=== PATIENT | female | born 1945 | race Caucasian/White ===

== ENCOUNTER 2019-11-30 12:26 | Outpatient (CLI) | payer MEDICARE, OTHER, SELFPAY ==
[2019-11-30 12:56] LABS: Basophils % 0.9 %; Eosinophils # 0.1 10^3/uL (0.0-0.8); Eosinophils % 2.4 %; Hematocrit 45.4 % (37.0-47.0); Hemoglobin 14.8 g/dL (11.5-15.3); Lymphocytes # 0.9 10^3/uL (0.8-4.8); Lymphocytes % 28.4 %; Mean Corpuscular HGB Conc 32.6 g/dL (30.0-36.0); Mean Corpuscular Hemoglobin 29.9 pg (28.0-34.0); Mean Corpuscular Volume 91.7 fL (81-99); Mean Platelet Volume 9.7 fL (7.4-10.4); Monocytes # 0.3 10^3/uL (0.2-0.9); Monocytes % 10.1 %; Neutrophils # 1.9 10^3/uL (1.8-7.7); Nucleated Red Blood Cells % 0 %; Platelet Count 288 10^3/cmm (130-400); Red Blood Count 4.95 10^6/uL (4.1-5.3); Red Cell Distribution Width 12.1 % (12.1-15.1); White Blood Count 3.3 10^3/uL (4.0-10.0)
[2019-11-30 13:23] LABS: Alanine Aminotransferase 21 U/L (0-33); Alkaline Phosphatase 58 IU/L (35-105); Anion Gap 13.7 (5-19); Aspartate Amino Transferase 22 U/L (0-32); Blood Urea Nitrogen 11 mg/dL (8-23); Calcium 9.6 mg/dL (8.5-10.5); Carbon Dioxide 25 mmol/L (22-29); Chloride 94 mmol/L (98-107); Globulin 2.2 g/dL (1.3-4.6); Glucose 125 mg/dL (65-115); Osmolality Calculated 266 mOsm/kg (285-295); Potassium 3.7 mmol/L (3.5-5.1); Sodium 129 mmol/L (136-145); Thyroid Stimulating Hormone 2.95 uIU/mL (0.27-4.20); Total Bilirubin 0.5 mg/dL (0.15-1.2); Total Protein 6.2 g/dL (6.6-8.7)
--- NOTE | 2019-11-30 14:36 | ONC FU_ITS ---
Dr. Gunderson follow up note Patient: Lucero Maier Unit #: [id number]: 1945 Dicatated By: Karl Gunderson M.D.Date of Visit:November 30, 2019 Onc Med Follow-up/Prog Note History of Present Illness: Mrs. Lucero Maier, 74-year-old female with history of newly diagnosed DCIS, as per patient during routine mammogram follow-up she was found to have 6 mm irregular nodule at 1 to 2:00 position which was confirmed with ultrasound and underwent Ultrasound-guided biopsy which confirmed DCIS, papillary and cribriform pattern with no necrosis, grade 1 ER/SD positive HER-2/lakeisha negative and on 02/27/2017 she underwent left breast lumpectomy which showed focal residual DCIS in the previous biopsy site, intermediate grade, with a clear margin but medial margin within 1 mm, associated with microcalcifications History of leukopenia, for which she underwent bone marrow evaluation about 10 years ago, as per patient no significant abnormality was seen, only observation was planned. she was referred to radiation oncology for postlumpectomy radiation which was started on 04/23/2017 and finished on 05/29/2017 Was started on Arimidex 1 mg by mouth daily for 5 years on 08/11/2017 Follow-up mammogram done on 05/26/2019 showed, BI-RADS 2, benign Came for follow-up, denies any specific complaints, no fever or chills, no nausea or vomiting, no diarrhea constipation, no new bony pains, occasionally hot flashes otherwise tolerating Arimidex well. Patient has seen in surgical clinic for follow-up and had mammogram done in May 2019 and it showed no abnormality and follow-up mammogram in a year recommended. Medications: Alive Once Daily Womens 50+ 1 Tablet Oral daily, Aspirin 1 Tablet (of 81 mg) Oral daily, [place] 1 Capsule (of 3 mg) Oral daily, [place]-Aiirzrfwe-Ppgz 2 (500-250-12.5 mg) Tablet Oral b.i.d., Cetirizine HCl 1 Tablet (of 10 mg) Capsule Oral daily, Cholecalciferol 1 Tablet (of 5000 Units) Oral daily, Ramya-C 1 Tablet Tablet, controlled release Oral daily, ICaps Plus 1 Tablet Oral daily, gustabo-x 2 Capsule daily, MegaRed [place]-3 Krill Oil 1 Capsule (of 500 mg) Oral daily, Qunol Ultra CoQ10 1 Capsule (of 100-150 mg - Units) Oral at bedtime, RaNITidine HCl 1 Tablet (of 150 mg) Oral daily PRN, Robitussin Nighttime Cough DM 2 tsp (of 12.5-30 mg/10mL) Liquid Oral at bedtime PRN, thymus plus 2 Tablet daily, Thyroid Blend SP-26 1 Tablet daily, Tylenol PM Extra Strength 1 Tablet (of 500-25 mg) Oral at bedtime PRN, Vitamin A 1 (03193 Units) Capsule Oral daily, Vitamin E 1 (400 Units) Capsule Oral daily Allergies: Barium Sulfate, Codeine Sulfate, and Penicillins. Review of Systems: Constitutional - Appetite is good and weight is stable. No fever, chills. Occasional hot flashes and night sweats. Energy level is good, ENMT - Frequent sinus congestion/drainage. No mouth sores. No sore throat or difficulty swallowing, Hematologic/Lymphatic - No abnormal bruising or bleeding, Respiratory - No shortness of breath. Nonproductive cough. No pleuritic pain or hemoptysis, Cardiovascular - No angina pain. No palpitations, Gastrointestinal - No nausea or vomiting. No heartburn or acid reflux. No diarrhea or constipation. No blood in the stool or black stools, Genitourinary (F) - No dysuria or hematuria. No urinary frequency. No urgency or incontinence, Musculoskeletal - chronic joint pain, Integumentary - edema present in bilateral lower extremities, Neurologic - No headache or dizziness. No numbness/paresthesias or other focal neurologic symptoms, Psychiatric - No anxiety or depression. No insomnia. Vital Signs: Performed on November 30, 2019 13:52 Height - 58.50 in Weight - 158.4 lbs (HIGH) BSA - 1.66 sq.m BMI - 32.54 (HIGH) Temperature - 96.9 F (LOW) Pulse - 68 /min Respiration - 18 /min BP - 196/59 mm(hg) (HIGH) O2 Sat - 95 % (LOW) Pain - 2 Performance Status: 0 - Fully active, able to carry on all predisease activities without restrictions. (ECOG) Physical Examination: Respiratory - Lungs are clear, Cardiovascular - Regular rate and rhythm of heart, Extremities - 1+ edema bilaterally. Lab/Imaging: Most recent lab results are not available for this patient. Impression: DCIS of left breast status post lumpectomy on 02/27/2017, ER/SD positive HER-2/lakeisha negative grade 1, clear surgical margins but medial margin less than 1 mm. Status post postlumpectomy radiation therapy from 04/23/2017 till 05/29/2017 Started on Arimidex 1 mg by mouth daily for 5 years on 08/11/2017 Leukopenia with questionable etiology could be underlying myelodysplasia As per patient she had bone marrow evaluation done about 10 years ago, at that time nothing obvious was noted, so observation was planned Plan: Discussed with patient regarding her labs white blood count 3.3 hemoglobin 14.8 g, hematocrit 45.4 platelets 288,000 CMP within normal limit except sodium 129 and TSH 2.95 Clinically, patient doing well with no signs symptoms suggestive of recurrence of disease, tolerating Arimidex/vitamin D/calcium well. We'll continue with same Mild leukopenia, etiology unclear could be multifactorial. Patient has been taking multiple herbs in the form of various teas since 1980s, could be due to one of those or considering her age underlying myelodysplasia cannot be ruled out but her white blood count has been stable per last over 10 years, will continue to monitor Mild Hyponatremia, probably due to excessive free water intake patient said she drinks a lot of liquids. Patient was advised to reduce free water intake and patient will follow with primary care physician for further instructions. Return to clinic in 8 months with CBC Signed By: Karl Gunderson M.D. <<Signature on File>>
== END 2019-11-30 12:27 | disposition home or self-care (01) ==
LOC: ONCMED 12:36
PROVIDERS: PCP Family Medicine; Visit Provider Internal Medicine Hematology & Oncology
DX: D05.12 Intraductal carcinoma in situ of left breast (principal); Z17.0 Estrogen receptor positive status [ER+]; D72.819 Decreased white blood cell count, unspecified; E87.1 Hypo-osmolality and hyponatremia; Z79.811 Long term (current) use of aromatase inhibitors; Z92.3 Personal history of irradiation
CPT/HCPCS: 80053; 84443; 85025; 99214

== ENCOUNTER 2020-08-01 12:31 | Outpatient (CLI) | payer MEDICARE, OTHER, SELFPAY ==
[2020-08-01 13:06] LABS: Basophils % 1.2 %; Eosinophils # 0.1 10^3/uL (0.0-0.8); Eosinophils % 2.7 %; Hematocrit 45.4 % (37.0-47.0); Hemoglobin 14.6 g/dL (11.5-15.3); Lymphocytes % 28.1 %; Mean Corpuscular HGB Conc 32.2 g/dL (30.0-36.0); Mean Corpuscular Hemoglobin 29.6 pg (28.0-34.0); Mean Corpuscular Volume 92.1 fL (81-99); Mean Platelet Volume 9.9 fL (7.4-10.4); Monocytes # 0.4 10^3/uL (0.2-0.9); Neutrophils % 53.2 %; Nucleated Red Blood Cells % 0 %; Platelet Count 327 10^3/cmm (130-400); Red Blood Count 4.93 10^6/uL (4.1-5.3); Red Cell Distribution Width 12.1 % (12.1-15.1); White Blood Count 3.4 10^3/uL (4.0-10.0)
--- NOTE | 2020-08-01 14:39 | ONC FU_ITS ---
Dr. Gunderson follow up note Patient: Lucero Maier Unit #: [id number]: 1945 Dicatated By: Karl Gunderson M.D.Date of Visit:Aug 01, 2020 Onc Med Follow-up/Prog Note History of Present Illness: Mrs. Lucero Maier, 74-year-old female with history of newly diagnosed DCIS, as per patient during routine mammogram follow-up she was found to have 6 mm irregular nodule at 1 to 2:00 position which was confirmed with ultrasound and underwent Ultrasound-guided biopsy which confirmed DCIS, papillary and cribriform pattern with no necrosis, grade 1 ER/ME positive HER-2/lakeisha negative and on 02/27/2017 she underwent left breast lumpectomy which showed focal residual DCIS in the previous biopsy site, intermediate grade, with a clear margin but medial margin within 1 mm, associated with microcalcifications History of leukopenia, for which she underwent bone marrow evaluation about 10 years ago, as per patient no significant abnormality was seen, only observation was planned. she was referred to radiation oncology for postlumpectomy radiation which was started on 04/23/2017 and finished on 05/29/2017 Was started on Arimidex 1 mg by mouth daily for 5 years on 08/11/2017 Came for follow-up, denies any specific complaints, no fever chills, no nausea or vomiting, no diarrhea constipation, no hot flashes, no bony pains. Tolerating Arimidex/vitamin D/calcium well otherwise. Patient was supposed to get mammogram prior to this visit but as per patient it was rescheduled and now she will get it done in September 2020. Medications: Alive Once Daily Womens 50+ 1 Tablet Oral daily, Aspirin 1 Tablet (of 81 mg) Oral daily, [place] 1 Capsule (of 3 mg) Oral daily, [place]-Iofptxryd-Uqyy 2 (500-250-12.5 mg) Tablet Oral b.i.d., Cetirizine HCl 1 Tablet (of 10 mg) Capsule Oral daily, Cholecalciferol 1 Tablet (of 5000 Units) Oral daily, Ramya-C 1 Tablet Tablet, controlled release Oral daily, ICaps Plus 1 Tablet Oral daily, gustabo-x 2 Capsule daily, MegaRed [place]-3 Krill Oil 1 Capsule (of 500 mg) Oral daily, Qunol Ultra CoQ10 1 Capsule (of 100-150 mg - Units) Oral at bedtime, RaNITidine HCl 1 Tablet (of 150 mg) Oral daily PRN, Robitussin Nighttime Cough DM 2 tsp (of 12.5-30 mg/10mL) Liquid Oral at bedtime PRN, thymus plus 2 Tablet daily, Thyroid Blend SP-26 1 Tablet daily, Tylenol PM Extra Strength 1 Tablet (of 500-25 mg) Oral at bedtime PRN, Vitamin A 1 (04923 Units) Capsule Oral daily, Vitamin E 1 (400 Units) Capsule Oral daily Allergies: Barium Sulfate, Codeine Sulfate, and Penicillins. Review of Systems: Review of Systems is not available for this patient. Vital Signs: Performed on Aug 01, 2020 14:12 Height - 58.50 in Weight - 160.0 lbs (HIGH) BSA - 1.67 sq.m BMI - 32.87 (HIGH) Temperature - 97.9 F (LOW) Pulse - 71 /min Respiration - 16 /min BP - 157/73 mm(hg) (HIGH) O2 Sat - 97 % Pain - 0 Performance Status: 0 - Fully active, able to carry on all predisease activities without restrictions. (ECOG) Physical Examination: Respiratory - Lungs are clear to auscultation, Cardiovascular - Regular rate and rhythm of heart, Gastrointestinal - Soft, bowel sounds present, Extremities - No visible edema or rash. Lab/Imaging: Most recent lab results are not available for this patient. Impression: DCIS of left breast status post lumpectomy on 02/27/2017, ER/ME positive HER-2/lakeisha negative grade 1, clear surgical margins but medial margin less than 1 mm. Status post postlumpectomy radiation therapy from 04/23/2017 till 05/29/2017 Started on Arimidex 1 mg by mouth daily for 5 years on 08/11/2017 Leukopenia with questionable etiology could be underlying myelodysplasia As per patient she had bone marrow evaluation done about 10 years ago, at that time nothing obvious was noted, so observation was planned Plan: Discussed with patient regarding her labs white blood count 3.4 hemoglobin 14.6 crit 44.4 platelets 327,000, with a normal differential Clinically, patient doing well with no new signs symptoms history of disease recurrence, tolerating Arimidex/vitamin D/calcium well. Mild leukopenia, stable/improving, will continue to monitor and return to clinic in 1 year with CBC And patient scheduled for Follow-up mammogram in September 2019, will follow with report Signed By: Karl Gunderson M.D. <<Signature on File>>
== END 2020-08-01 12:32 | disposition home or self-care (01) ==
LOC: ONCMED 12:34
PROVIDERS: PCP Family Medicine; Visit Provider Internal Medicine Hematology & Oncology
DX: D05.12 Intraductal carcinoma in situ of left breast (principal); Z17.0 Estrogen receptor positive status [ER+]; D72.819 Decreased white blood cell count, unspecified; Z79.811 Long term (current) use of aromatase inhibitors; Z92.3 Personal history of irradiation
CPT/HCPCS: 36415; 85025; G0463

== ENCOUNTER 2021-09-26 14:02 | Outpatient (CLI) | payer MEDICARE, OTHER, SELFPAY ==
[2021-09-26 14:44] LABS: Basophils % 0.8 %; Eosinophils # 0.1 10^3/uL (0.0-0.8); Eosinophils % 2.1 %; Hematocrit 41.9 % (37.0-47.0); Lymphocytes # 1.5 10^3/uL (0.8-4.8); Lymphocytes % 32.2 %; Mean Corpuscular HGB Conc 33.4 g/dL (30.0-36.0); Mean Corpuscular Hemoglobin 30.4 pg (28.0-34.0); Mean Corpuscular Volume 90.9 fl (81-99); Mean Platelet Volume 9.2 fL (7.4-10.4); Monocytes # 0.4 10^3/uL (0.2-0.9); Neutrophils # 2.64 10^3/uL (1.8-7.7); Neutrophils % 55.3 %; Nucleated Red Blood Cells % 0 %; Platelet Count 343 10^3/cmm (130-400); Red Blood Count 4.61 10^6/uL (4.1-5.3); Red Cell Distribution Width 12.8 % (12.1-15.1); White Blood Count 4.8 10^3/uL (4.0-10.0)
[2021-09-26 15:23] LABS: Alanine Aminotransferase 13 U/L (0-33); Albumin Level 4.1 g/dL (3.5-5.2); Alkaline Phosphatase 67 IU/L (35-105); Anion Gap 13.6 (5-19); Aspartate Amino Transferase 17 U/L (0-32); Blood Urea Nitrogen 10 mg/dL (8-23); Calcium 9.8 mg/dL (8.5-10.5); Carbon Dioxide 26 mmol/L (22-29); Chloride 103 mmol/L (98-107); Glucose 125 mg/dL (65-115); Osmolality Calculated 289 mOsm/kg (285-295); Potassium 3.6 mmol/L (3.5-5.1); Sodium 139 mmol/L (136-145); Total Bilirubin 0.8 mg/dL (0.15-1.2); Total Protein 6.1 g/dL (6.6-8.7)
--- NOTE | 2021-09-26 16:37 | ONC FU_ITS ---
Dr. Gunderson follow up note Patient: Lucero Maier Unit #: [id number]: 1945 Dicatated By: Karl Gunderson M.D.Date of Visit:Sep 26, 2021 Onc Med Follow-up/Prog Note History of Present Illness: Mrs. Lucero Maier, 76-year-old female with history of newly diagnosed DCIS, as per patient during routine mammogram follow-up she was found to have 6 mm irregular nodule at 1 to 2:00 position which was confirmed with ultrasound and underwent Ultrasound-guided biopsy which confirmed DCIS, papillary and cribriform pattern with no necrosis, grade 1 ER/NC positive HER-2/lakeisha negative and on 02/27/2017 she underwent left breast lumpectomy which showed focal residual DCIS in the previous biopsy site, intermediate grade, with a clear margin but medial margin within 1 mm, associated with microcalcifications History of leukopenia, for which she underwent bone marrow evaluation about 10 years ago, as per patient no significant abnormality was seen, only observation was planned. she was referred to radiation oncology for postlumpectomy radiation which was started on 04/23/2017 and finished on 05/29/2017 Was started on Arimidex 1 mg by mouth daily for 5 years on 08/11/2017 Came for follow-up, denies any specific complaints, except cramps in her lower extremities, as per patient she was diagnosed with Covid infection in July 2021 and was treated as inpatient for 1 week, at that time, she did not take Arimidex for almost 1 month and then restarted till about a week ago when she ran out a prescription. And now she thinks her leg cramps could be due to Arimidex. No fever chills, no nausea or vomiting, no diarrhea or constipation, no melena or hematochezia, no hemoptysis hematemesis no new bony pains Came for follow-up, denies any specific complaints, no fever chills, no nausea or vomiting, no diarrhea constipation, no hot flashes, no bony pains. Tolerating Arimidex/vitamin D/calcium well otherwise. Patient was supposed to get mammogram prior to this visit but as per patient it was rescheduled and now she will get it done in September 2020. Medications: Alive Once Daily Womens 50+ 1 Tablet Oral daily, [place] 1 Capsule (of 3 mg) Oral daily, Plfahzv-Aticmfpjg-Glon 2 (500-250-12.5 mg) Tablet Oral b.i.d., Cetirizine HCl 1 Tablet (of 10 mg) Capsule Oral daily, Cholecalciferol 1 Tablet (of 5000 Units) Oral daily, Ramya-C 1 Tablet Tablet, controlled release Oral daily, ICaps Plus 1 Tablet Oral daily, gustabo-x 2 Capsule daily, MegaRed [place]-3 Krill Oil 1 Capsule (of 500 mg) Oral daily, Qunol Ultra CoQ10 1 Capsule (of 100-150 mg - Units) Oral at bedtime, RaNITidine HCl 1 Tablet (of 150 mg) Oral daily PRN, Robitussin Nighttime Cough DM 2 tsp (of 12.5-30 mg/10mL) Liquid Oral at bedtime PRN, Thyroid Blend SP-26 1 Tablet daily, Tylenol PM Extra Strength 1 Tablet (of 500-25 mg) Oral at bedtime PRN, Vitamin E 1 (400 Units) Capsule Oral daily Allergies: Barium Sulfate, Codeine Sulfate, and Penicillins. Review of Systems: Review of Systems is not available for this patient. Vital Signs: Performed on Sep 26, 2021 15:34 Height - 58.50 in Weight - 149.6 lbs (LOW) BSA - 1.62 sq.m BMI - 30.73 (HIGH) Temperature - 97.0 F (LOW) Pulse - 70 /min Respiration - 16 /min BP - 123/69 mm(hg) O2 Sat - 95 % (LOW) Pain - 0 Fatigue - 8 Performance Status: 0 - Fully active, able to carry on all predisease activities without restrictions. (ECOG) Physical Examination: Respiratory - Lungs are clear to auscultation, Cardiovascular - Regular rate and rhythm of heart, Gastrointestinal - Soft, bowel sounds present, Extremities - No visible edema. Lab/Imaging: Most recent lab results are not available for this patient. Impression: DCIS of left breast status post lumpectomy on 02/27/2017, ER/NC positive HER-2/lakeisha negative grade 1, clear surgical margins but medial margin less than 1 mm. Status post postlumpectomy radiation therapy from 04/23/2017 till 05/29/2017 Started on Arimidex 1 mg by mouth daily for 5 years on 08/11/2017 Leukopenia with questionable etiology could be underlying myelodysplasia As per patient she had bone marrow evaluation done about 10 years ago, at that time nothing obvious was noted, so observation was planned History of Covid infection, diagnosed in July 2021 required inpatient care Plan: Discussed with patient regarding her labs white blood count 4.8 hemoglobin 14 hematocrit 41.9 platelets 343,000 CMP within normal limits Clinically, patient doing well with no new signs symptom suggestive of recurrence of disease her lab work-up is in within normal range, isolated mild leukopenia, now has resolved. As far as history of DCIS left breast is concerned, she is on Arimidex, and ran out of prescription about a week ago. Patient is concerned about lower extremity cramps as she is attributing those to Arimidex. Patient was advised to continue to hold Arimidex for another month and if her lower extremity cramps resolves then we will consider switching her to Femara for remaining adjuvant therapy on the other hand if she has a persistent leg cramps, will restart her on Arimidex and give her prescription for Arimidex. Return to clinic in 1 month Signed By: Karl Gunderson M.D. <<Signature on File>>
== END 2021-09-26 14:03 | disposition home or self-care (01) ==
PROVIDERS: PCP Family Medicine; Visit Provider Internal Medicine Hematology & Oncology
DX: D05.12 Intraductal carcinoma in situ of left breast (principal); R25.2 Cramp and spasm; D72.819 Decreased white blood cell count, unspecified; Z79.899 Other long term (current) drug therapy
CPT/HCPCS: 36415; 80053; 85025; 99214

== ENCOUNTER 2021-10-29 13:23 | Outpatient (CLI) | payer MEDICARE, OTHER, SELFPAY ==
--- NOTE | 2021-11-01 08:26 | ONC FU_ITS ---
Margarita Celeste Progress Note Patient: Lucero Maier Unit #: [id number]: 1945 Dicatated By: Margarita Celeste N.P.Date of Visit:Oct 29, 2021 Onc MED Follow-up/Prog Note Chief Complaint: Breast cancer History of Present Illness: Mrs. Lucero Maier, 76-year-old female with history of newly diagnosed DCIS, as per patient during routine mammogram follow-up she was found to have 6 mm irregular nodule at 1 to 2:00 position which was confirmed with ultrasound and underwent Ultrasound-guided biopsy which confirmed DCIS, papillary and cribriform pattern with no necrosis, grade 1 ER/MD positive HER-2/alkeisha negative and on 02/27/2017 she underwent left breast lumpectomy which showed focal residual DCIS in the previous biopsy site, intermediate grade, with a clear margin but medial margin within 1 mm, associated with microcalcifications History of leukopenia, for which she underwent bone marrow evaluation about 10 years ago, as per patient no significant abnormality was seen, only observation was planned. she was referred to radiation oncology for postlumpectomy radiation which was started on 04/23/2017 and finished on 05/29/2017 Was started on Arimidex 1 mg by mouth daily for 5 years on 08/11/2017 Patient presents today for follow-up. She denies any problems. She has mild fatigue. Her appetite is good. No fevers, chills, night sweats. No sinus drainage or sore throat. No shortness of breath, cough, chest pain. No nausea or vomiting. No urinary symptoms. No joint or bone pain. Review Of Symptoms: See above Past Medical History: Asthma Osteoarthritis Covid virus in 2021 Cancer (left breast) in 2017 Past Surgical History: Tubal ligation Covid virus in 2021 Lumpectomy in 2017 - left Breast biopsy in 2017 - left Bone marrow aspiration/biopsy in 2010 Cholecystectomy in 2002 Colonoscopy in 1994 Tonsillectomy in 1949 Allergies: Barium Sulfate, Codeine Sulfate, and Penicillins. Medications: Alive Once Daily Womens 50+ 1 Tablet Oral daily [place] 1 Capsule (of 3 mg) Oral daily Trndgqs-Cyybqtpho-Hior 2 (500-250-12.5 mg) Tablet Oral b.i.d. Cetirizine HCl 1 Tablet (of 10 mg) Capsule Oral daily Cholecalciferol 1 Tablet (of 5000 Units) Oral daily Ramya-C 1 Tablet Tablet, controlled release Oral daily ICaps Plus 1 Tablet Oral daily gustabo-x 2 Capsule daily PRN MegaRed [place]-3 Krill Oil 1 Capsule (of 500 mg) Oral daily Qunol Ultra CoQ10 1 Capsule (of 100-150 mg - Units) Oral at bedtime RaNITidine HCl 1 Tablet (of 150 mg) Oral daily PRN Robitussin Nighttime Cough DM 2 tsp (of 12.5-30 mg/10mL) Liquid Oral at bedtime PRN Thyroid Blend SP-26 1 Tablet daily Tylenol PM Extra Strength 1 Tablet (of 500-25 mg) Oral at bedtime PRN Family History: Ms. Maier's mother at age 93: Brain Anuerysm, and Osteoarthritis. Ms. Maier's father at age 47: heart attack. Ms. Maier has 1 sister who is : leukemia. She has 1 maternal aunt who is : breast cancer. Social History: Ms. Maier is single. Ms. Maier no longer smokes but had smoked 1.0 pack/day for 3 years. She drinks occasionally. She consumes 1 day/week. Physical Examination: Performed on Oct 29, 2021 13:42: Height - 58.50 in, Weight - 154.0 lbs (HIGH), BSA - 1.64 sq.m, BMI - 31.64 (HIGH), Temperature - 97.6 F (LOW), Pulse - 70 /min, Respiration - 16 /min, BP - 146/76 mm(hg) (HIGH), O2 Sat - 98 %, Pain - 0, and Fatigue - 6. Performance Status: 0 - Fully active, able to carry on all predisease activities without restrictions. (ECOG) Constitutional Alert, cooperative, oriented. Mood and affect appropriate. Appears close to chronological age. Well nourished. Well developed. Head Normocephalic; no scars. Respiratory Lungs are clear to auscultation without rhonchi or wheezing. Cardiovascular Regular rate and rhythm of heart without murmurs, gallops or rubs. Abdomen Non-tender, non-distended, no masses, ascites or hepatosplenomegaly. Good bowel sounds. No guarding or rebound tenderness. Musculoskeletal No tenderness or swelling, normal range of motion without obvious weakness. Psychiatric Alert and oriented times three. Coherent speech. Verbalizes understanding of our discussions today. Laboratory: Most recent lab results are not available for this patient. Impression: DCIS of left breast status post lumpectomy on 02/27/2017, ER/MD positive HER-2/lakeisha negative grade 1, clear surgical margins but medial margin less than 1 mm. Status post postlumpectomy radiation therapy from 04/23/2017 till 05/29/2017 Started on Arimidex 1 mg by mouth daily for 5 years on 08/11/2017 Leukopenia with questionable etiology could be underlying myelodysplasia As per patient she had bone marrow evaluation done about 10 years ago, at that time nothing obvious was noted, so observation was planned History of Covid infection, diagnosed in July 2021 required inpatient care Plan: Patient presents today for follow-up. She is currently on Arimidex 1 mg p.o. daily. She has been having on and off leg cramps. We discussed switching to Femara to see if that would alleviate the leg cramps but she would rather stay on Arimidex. She will follow-up in 3 months with a CBC and CMP. Signed By: Margarita Celeste N.P. <<Signature on File>>
== END 2021-10-29 13:24 | disposition home or self-care (01) ==
LOC: ONCMED 13:27
PROVIDERS: PCP Family Medicine; Visit Provider Nurse Practitioner Family
DX: D05.12 Intraductal carcinoma in situ of left breast (principal); Z17.0 Estrogen receptor positive status [ER+]; Z79.811 Long term (current) use of aromatase inhibitors; D72.819 Decreased white blood cell count, unspecified; Z86.16 Personal history of COVID-19
CPT/HCPCS: 99214

== ENCOUNTER 2022-01-30 12:12 | Oncology outpatient (recurring) (ONCR) | payer MEDICARE, OTHER, SELFPAY ==
[2022-01-30 12:43] LABS: Basophils % 0.8 %; Eosinophils # 0.1 10^3/uL (0.0-0.8); Eosinophils % 1.8 %; Hematocrit 44.8 % (37.0-47.0); Hemoglobin 15.3 g/dL (11.5-15.3); Lymphocytes # 1.2 10^3/uL (0.8-4.8); Lymphocytes % 30.9 %; Mean Corpuscular HGB Conc 34.2 g/dL (30.0-36.0); Mean Corpuscular Hemoglobin 29.8 pg (28.0-34.0); Mean Corpuscular Volume 87.3 fl (81-99); Mean Platelet Volume 9.8 fL (7.4-10.4); Monocytes # 0.4 10^3/uL (0.2-0.9); Monocytes % 9.5 %; Neutrophils # 2.23 10^3/uL (1.8-7.7); Nucleated Red Blood Cells % 0 %; Platelet Count 278 10^3/cmm (130-400); Red Blood Count 5.13 10^6/uL (4.1-5.3); Red Cell Distribution Width 11.9 % (12.1-15.1)
[2022-01-30 13:10] LABS: Alanine Aminotransferase 15 U/L (0-33); Albumin Level 4.1 g/dL (3.5-5.2); Alkaline Phosphatase 75 IU/L (35-105); Anion Gap 13.1 (5-19); Aspartate Amino Transferase 20 U/L (0-32); Blood Urea Nitrogen 11 mg/dL (8-23); Calcium 9.2 mg/dL (8.5-10.5); Carbon Dioxide 26 mmol/L (22-29); Chloride 104 mmol/L (98-107); Globulin 1.7 g/dL (1.3-4.6); Glucose 115 mg/dL (65-115); Osmolality Calculated 288 mOsm/kg (285-295); Potassium 4.1 mmol/L (3.5-5.1); Sodium 139 mmol/L (136-145); Total Bilirubin 0.9 mg/dL (0.15-1.2); Total Protein 5.8 g/dL (6.6-8.7)
== END 2022-02-10 23:59 | disposition home or self-care (01) ==
PROVIDERS: PCP Family Medicine; Visit Provider Nurse Practitioner Family
DX: D05.12 Intraductal carcinoma in situ of left breast (principal); Z17.0 Estrogen receptor positive status [ER+]; D72.829 Elevated white blood cell count, unspecified; Z79.818 Long term (current) use of other agents affecting estrogen receptors and estrogen levels; Z86.16 Personal history of COVID-19
CPT/HCPCS: 36415; 80053; 85025; 99214

== ENCOUNTER 2022-08-21 09:58 | Oncology outpatient (recurring) (ONCR) | payer MEDICARE, OTHER, SELFPAY ==
[2022-08-21 10:32] LABS: Eosinophils # 0.1 10^3/uL (0.0-0.8); Eosinophils % 2.5 %; Hematocrit 46.9 % (37.0-47.0); Hemoglobin 15.5 g/dL (11.5-15.3); Lymphocytes # 1.7 10^3/uL (0.8-4.8); Lymphocytes % 43.3 %; Mean Corpuscular Hemoglobin 29.9 pg (28.0-34.0); Mean Corpuscular Volume 90.5 fl (81-99); Mean Platelet Volume 9.7 fL (7.4-10.4); Monocytes # 0.4 10^3/uL (0.2-0.9); Monocytes % 10.4 %; Neutrophils # 1.65 10^3/uL (1.8-7.7); Nucleated Red Blood Cells % 0 %; Platelet Count 299 10^3/cmm (130-400); Red Blood Count 5.18 10^6/uL (4.1-5.3); White Blood Count 3.9 10^3/uL (4.0-10.0)
[2022-08-21 10:56] LABS: Alanine Aminotransferase 15 U/L (0-33); Albumin Level 3.7 g/dL (3.5-5.2); Alkaline Phosphatase 62 U/L (35-105); Aspartate Amino Transferase 16 U/L (0-32); Blood Urea Nitrogen 16 mg/dL (8-23); Calcium 9.2 mg/dL (8.5-10.5); Carbon Dioxide 24 mmol/L (22-29); Chloride 108 mmol/L (98-107); Globulin 1.9 g/dL (1.3-4.6); Glucose 124 mg/dL (65-115); Osmolality Calculated 297 mOsm/kg (285-295); Sodium 142 mmol/L (136-145); Total Bilirubin 0.6 mg/dL (0.15-1.2); Total Protein 5.6 g/dL (6.6-8.7)
== END 2022-09-10 23:59 | disposition home or self-care (01) ==
PROVIDERS: Internal Medicine Hematology & Oncology; PCP Family Medicine; Visit Provider Nurse Practitioner Family
DX: Z92.3 Personal history of irradiation; Z08 Encounter for follow-up examination after completed treatment for malignant neoplasm; Z85.3 Personal history of malignant neoplasm of breast; M25.512 Pain in left shoulder; G89.29 Other chronic pain; D72.819 Decreased white blood cell count, unspecified
CPT/HCPCS: 36415; 80053; 85025; 99214

== ENCOUNTER 2023-08-21 10:37 | Oncology outpatient (recurring) (ONCR) | payer MEDICARE, OTHER, SELFPAY ==
[2023-08-21 10:57] LABS: Basophils % 0.9 %; Eosinophils # 0.1 10^3/uL (0.0-0.8); Eosinophils % 1.4 %; Hematocrit 48.3 % (36-47); Lymphocytes # 1.3 10^3/uL (0.8-4.8); Lymphocytes % 28.4 %; Mean Corpuscular HGB Conc 33.3 g/dL (30-55); Mean Corpuscular Hemoglobin 30.4 pg (27-33); Mean Corpuscular Volume 91.1 fl (85-98); Mean Platelet Volume 9.6 fL (7.4-10.4); Monocytes # 0.4 10^3/uL (0.2-0.9); Monocytes % 8.1 %; Neutrophils # 2.68 10^3/uL (1.8-7.7); Neutrophils % 60.5 %; Nucleated Red Blood Cells % 0 %; Platelet Count 304 10^3/cmm (157-399); Red Cell Distribution Width 12.6 % (12.1-15.1); White Blood Count 4.43 10^3/uL (3.29-11.43)
[2023-08-21 11:16] LABS: Alanine Aminotransferase 19 U/L (0-33); Albumin Level 3.9 g/dL (3.5-5.2); Alkaline Phosphatase 54 U/L (35-105); Aspartate Amino Transferase 19 U/L (0-32); Blood Urea Nitrogen 19 mg/dL (8-23); Calcium 8.8 mg/dL (8.5-10.5); Carbon Dioxide 25 mmol/L (22-29); Chloride 107 mmol/L (98-107); Globulin 2.1 g/dL (1.3-4.6); Glucose 116 mg/dL (65-115); Osmolality Calculated 295 mOsm/kg (285-295); Sodium 141 mmol/L (136-145); Total Bilirubin 0.8 mg/dL (0.15-1.2)
[2023-08-21 11:21] LABS: Anion Gap 13.5 (5-19); Potassium 4.5 mmol/L (3.5-5.1)
== END 2023-09-11 23:59 | disposition home or self-care (01) ==
PROVIDERS: Internal Medicine Hematology & Oncology; PCP Family Medicine; Visit Provider Nurse Practitioner Family
DX: Z92.3 Personal history of irradiation (principal); Z08 Encounter for follow-up examination after completed treatment for malignant neoplasm; Z85.3 Personal history of malignant neoplasm of breast
CPT/HCPCS: 36415; 80053; 85025; 99214

== ENCOUNTER 2023-09-18 13:05 | Outpatient (CLI) | payer MEDICARE, OTHER, SELFPAY ==
--- NOTE | 2023-09-18 13:30 | XR_ITS ---
WS: [id number] DEXA (DUAL ENERGY X-RAY ABSORPTIOMETRY) Bone mineral density was performed using a [employer] machine. HISTORY: Age related osteoporosis COMPARISON: None available. Lumbar spine BMD (L1-L4): 1.395 g/cm2 T score: 1.8 Z score: 3.4 Total hip BMD: Left: 1.054 g/cm2. T score: 0.4 Z score: 2.1 Right: 1.015 g/cm2. T score: 0.1 Z score: 1.8 10 year probability of a major osteoporotic fracture is 10.2%. IMPRESSION: NORMAL BONE MINERAL DENSITY based upon the WHO classification for females.
== END 2023-09-18 13:06 | disposition home or self-care (01) ==
LOC: RAD 13:06
PROVIDERS: PCP Family Medicine; Visit Provider Family Medicine
DX: M81.0 Age-related osteoporosis without current pathological fracture (principal)
CPT/HCPCS: 77080

== ENCOUNTER → 2023-10-02 09:20 | Outpatient (BNVA) | payer MEDICARE, OTHER, SELFPAY | PROVIDERS: PCP Family Medicine; Visit Provider Podiatrist Foot & Ankle Surgery | DX: L60.0 Ingrowing nail (principal); I73.9 Peripheral vascular disease, unspecified | CPT/HCPCS: 11721; 99203 ==

== ENCOUNTER → 2024-01-07 13:23 | Outpatient (BNVA) | payer MEDICARE, OTHER, SELFPAY | PROVIDERS: PCP Family Medicine; Visit Provider Podiatrist Foot & Ankle Surgery | DX: L60.8 Other nail disorders (principal); L60.3 Nail dystrophy | CPT/HCPCS: 99213 ==

== ENCOUNTER → 2024-03-23 09:55 | Outpatient (BNVA) | payer MEDICARE, OTHER, SELFPAY | PROVIDERS: PCP Family Medicine; Visit Provider Podiatrist Foot & Ankle Surgery | DX: L60.3 Nail dystrophy (principal); L60.8 Other nail disorders | CPT/HCPCS: 99213 ==

== ENCOUNTER → 2024-06-22 13:20 | Outpatient (BNVA) | payer MEDICARE, OTHER, SELFPAY | PROVIDERS: PCP Family Medicine; Visit Provider Podiatrist Foot & Ankle Surgery | DX: L60.3 Nail dystrophy (principal); I73.9 Peripheral vascular disease, unspecified; L60.8 Other nail disorders | CPT/HCPCS: 99213 ==

== ENCOUNTER 2024-08-19 11:57 | Oncology outpatient (recurring) (ONCR) | payer MEDICARE, OTHER, SELFPAY ==
[2024-08-19 12:29] LABS: Basophils % 0.6 %; Eosinophils # 0.1 10^3/uL (0.0-0.8); Eosinophils % 2.1 %; Hematocrit 44.1 % (36-47); Lymphocytes # 1.3 10^3/uL (0.8-4.8); Lymphocytes % 36.9 %; Mean Corpuscular HGB Conc 33.1 g/dL (30-55); Mean Corpuscular Hemoglobin 30.1 pg (27-33); Mean Corpuscular Volume 90.9 fl (85-98); Mean Platelet Volume 10.2 fL (7.4-10.4); Monocytes # 0.3 10^3/uL (0.2-0.9); Monocytes % 7.7 %; Neutrophils # 1.77 10^3/uL (1.8-7.7); Neutrophils % 52.1 %; Nucleated Red Blood Cells % 0 %; Platelet Count 245 10^3/cmm (157-399); Red Blood Count 4.85 10^6/uL (3.85-5.65); Red Cell Distribution Width 12.3 % (12.1-15.1); White Blood Count 3.39 10^3/uL (3.29-11.43)
[2024-08-19 12:53] LABS: Alanine Aminotransferase 14 U/L (0-33); Albumin Level 3.4 g/dL (3.5-5.2); Alkaline Phosphatase 45 U/L (35-105); Anion Gap 13.4 (5-19); Aspartate Amino Transferase 16 U/L (0-32); Blood Urea Nitrogen 26 mg/dL (8-23); Calcium 8.4 mg/dL (8.5-10.5); Carbon Dioxide 25 mmol/L (22-29); Chloride 108 mmol/L (98-107); Creatinine Clr Calc Pharmacy 61.7825; Globulin 1.8 g/dL (1.3-4.6); Glucose 103 mg/dL (65-115); Osmolality Calculated 299 mOsm/kg (285-295); Potassium 4.4 mmol/L (3.5-5.1); Sodium 142 mmol/L (136-145); Total Bilirubin 0.5 mg/dL (0.15-1.2); Total Protein 5.2 g/dL (6.6-8.7)
== END 2024-09-10 23:59 | disposition home or self-care (01) ==
PROVIDERS: PCP Family Medicine; Visit Provider Nurse Practitioner Family
DX: Z08 Encounter for follow-up examination after completed treatment for malignant neoplasm (principal); Z85.3 Personal history of malignant neoplasm of breast; D72.819 Decreased white blood cell count, unspecified; Z92.3 Personal history of irradiation; Z87.891 Personal history of nicotine dependence; Z92.21 Personal history of antineoplastic chemotherapy; Z86.16 Personal history of COVID-19
CPT/HCPCS: 36415; 80053; 85025; 99214

== ENCOUNTER → 2024-09-21 11:21 | Outpatient (BNVA) | payer MEDICARE, OTHER, SELFPAY | PROVIDERS: PCP Family Medicine; Visit Provider Podiatrist Foot & Ankle Surgery | DX: I73.9 Peripheral vascular disease, unspecified (principal); L60.8 Other nail disorders; L60.3 Nail dystrophy | CPT/HCPCS: 99213 ==

== ENCOUNTER → 2025-01-25 11:25 | Outpatient (BNVA) | payer MEDICARE, OTHER, SELFPAY | PROVIDERS: PCP Family Medicine; Visit Provider Podiatrist Foot & Ankle Surgery | DX: I73.9 Peripheral vascular disease, unspecified (principal); L60.3 Nail dystrophy; L60.8 Other nail disorders; M19.071 Primary osteoarthritis, right ankle and foot | CPT/HCPCS: 11721; 99213 ==

== ENCOUNTER → 2025-03-15 09:05 | Outpatient (BNVA) | payer MEDICARE, OTHER, SELFPAY | PROVIDERS: PCP Family Medicine; Visit Provider Orthopaedic Surgery | DX: M25.561 Pain in right knee (principal); M25.562 Pain in left knee; M17.0 Bilateral primary osteoarthritis of knee | CPT/HCPCS: 73560; 73565; 99204 ==

== ENCOUNTER → 2025-03-16 08:46 | Outpatient (BNVA) | payer MEDICARE, OTHER, SELFPAY | PROVIDERS: PCP Family Medicine; Visit Provider Dermatology | DX: L71.8 Other rosacea (principal); L82.1 Other seborrheic keratosis; D23.71 Other benign neoplasm of skin of right lower limb, including hip; L81.4 Other melanin hyperpigmentation; D18.01 Hemangioma of skin and subcutaneous tissue | CPT/HCPCS: 11200; 17110; 99204 ==

== ENCOUNTER → 2025-04-01 10:09 | Outpatient (BNVA) | payer MEDICARE, OTHER, SELFPAY | PROVIDERS: PCP Family Medicine; Visit Provider Orthopaedic Surgery | DX: M17.11 Unilateral primary osteoarthritis, right knee (principal) | CPT/HCPCS: 99213 ==